=== PATIENT | female | born 1975 | race Caucasian/White ===

== ENCOUNTER 2018-06-29 09:21 | Outpatient (CLI) | payer OTHER | END 2018-06-29 09:26 | disposition home or self-care (01) | LOC: MAMO-SONO 09:21 | DX: M81.0 Age-related osteoporosis without current pathological fracture (principal); Z13.820 Encounter for screening for osteoporosis; N63.10 Unspecified lump in the right breast, unspecified quadrant; N63.20 Unspecified lump in the left breast, unspecified quadrant; N64.4 Mastodynia; N83.00 Follicular cyst of ovary, unspecified side; N80.8 Other endometriosis; D25.9 Leiomyoma of uterus, unspecified ==

== ENCOUNTER → 2018-06-29 | Outpatient (CLI) | payer OTHER ==
[~2018-06-29] MED LIST: AMOX1TAB12 PO; AYR SALINE NA14.1 GM NASAL
== END | disposition home or self-care (01) ==
LOC: NUCLEAR 09:56
DX: M81.0 Age-related osteoporosis without current pathological fracture (principal); Z13.820 Encounter for screening for osteoporosis

== ENCOUNTER 2018-06-30 10:35 | Outpatient (CLI) | payer OTHER | END 2018-06-30 10:42 | disposition home or self-care (01) | LOC: SONOGRAMA 10:35 | DX: E03.8 Other specified hypothyroidism (principal) ==

== ENCOUNTER 2019-01-25 08:51 | Outpatient (CLI) | payer OTHER | END 2019-01-25 14:01 | disposition home or self-care (01) | LOC: NUCLEAR 08:51 | DX: E04.1 Nontoxic single thyroid nodule (principal) | CPT/HCPCS: 78012; A9531 ==

== ENCOUNTER 2019-01-26 09:26 | Outpatient (CLI) | payer OTHER | END 2019-01-26 09:35 | disposition home or self-care (01) | LOC: NUCLEAR 09:26 | DX: E04.1 Nontoxic single thyroid nodule (principal) | CPT/HCPCS: 78013; A9512 ==

== ENCOUNTER 2021-06-24 09:59 | Outpatient (CLI) | payer OTHER | END 2021-06-24 10:00 | disposition home or self-care (01) | LOC: NUCLEAR 09:59 | DX: M81.0 Age-related osteoporosis without current pathological fracture (principal) ==

== ENCOUNTER 2021-06-24 11:34 | Outpatient (CLI) | payer OTHER | END 2021-06-24 11:38 | disposition home or self-care (01) | LOC: MAMO-SONO | DX: Z12.31 Encounter for screening mammogram for malignant neoplasm of breast (principal); N63.0 Unspecified lump in unspecified breast; N83.00 Follicular cyst of ovary, unspecified side; N80.9 Endometriosis, unspecified; D25.9 Leiomyoma of uterus, unspecified; E03.9 Hypothyroidism, unspecified; E04.1 Nontoxic single thyroid nodule ==